=== PATIENT | female | born 1960 | race Hispanic/Latino ===

== ENCOUNTER → 2020-03-12 | Outpatient (CLI) | payer BC ==
[~2020-03-12] MED LIST: TRICOR145 MG PO; Z.0.HYDROCHLOROTHIA2 MT; Z.0.TOPROL XL50 MG MT; Z.0.ZOCOR40 MG MT
--- NOTE | 2020-03-12 10:55 | Diagnostic Imaging Report ---
Abdominal Ultrasound Clinical Diagnosis: Abdominal pain. Liver disease. Comparison: None Technique: Multiple transaxial and longitudinal images were obtained through the abdomen with real time ultrasonography. A low-frequency curvilinear transducer was utilized. Multiple images were submitted for interpretation. Report: Liver: The liver measures 12.8 cm in the right midaxillary line. There are no focal masses or abnormal cysts. The echogenicity is within normal limits. Spleen: The spleen measures 9.3 cm in the left mid axillary line. There are no focal masses or cysts. Gallbladder: Post cholecystectomy. Biliary tree: There is no evidence of intra or extra hepatic biliary ductal dilatation. The common bile duct measures 4 mm. Portal vein: The portal vein measures 8 mm. There is hepatopedal flow. Hepatic veins: Unremarkable. Pancreas: The pancreatic tail is not well seen secondary to overlying bowel gas. The remainder of the pancreas shows normal echotexture and no focal masses or cysts. There is no pancreatic duct dilatation. Ascites: Absent Pleural Effusion: Absent Right kidney: The right kidney measures 10.8 x 4.7 x 3.1 cm. There is no evidence of hydronephrosis, mass, cyst. Left kidney: The left kidney measures 9.7 x 4.4 x 4.6 cm. There is no evidence of hydronephrosis, mass, cyst. IVC/Aorta: Partially seen segments demonstrate no abnormality. Impression: Status post cholecystectomy. Otherwise unremarkable abdominal ultrasound. Signed by: Vikram Light MD on 03/12/2020 10:52 AM
== END ==
LOC: US 09:32
PROVIDERS: ATTEND Family Medicine
DX: R10.9 Unspecified abdominal pain (principal); K57.90 Diverticulosis of intestine, part unspecified, without perforation or abscess without bleeding
CPT/HCPCS: 76700

== ENCOUNTER → 2023-01-25 | Outpatient (REF) | payer OTHER | LOC: MRI 12:46 | PROVIDERS: ATTEND Family Medicine | DX: M51.26 Other intervertebral disc displacement, lumbar region (principal) | CPT/HCPCS: 72148 ==